=== PATIENT | female | born 1965 | race Caucasian/White ===

== ENCOUNTER 2017-10-09 12:44 | Emergency (ER) | payer MEDICAID, OTHER ==
[~2017-10-09] VITALS: Ht 152.4 cm; Wt 85.0 kg
[~2017-10-09 12:44] MED LIST: ATOR20TA65 PO; GLIP10TA10 PO; LISI-604 PO; METF10002 PO
[2017-10-09 14:28] LABS: BASOPHILS % 0.4 % (0.0-2.0); EOSINOPHILS % 1.2 % (0.0-5.0); HEMATOCRIT. 37.2 % (36.0-48.0); HEMOGLOBIN. 12.8 g/dL (12.0-16.0); LYMPHOCYTES % 35.1 % (20.0-50.0); MEAN CORPUSCULAR HEMOGLOBIN 30.6 pg (28.0-32.0); MEAN CORPUSCULAR VOLUME 88.7 fL (81.0-99.0); MEAN PLATELET VOLUME 9.1 fl (7.4-10.4); NEUTROPHILS % 54.3 % (40.0-76.0); PLATELET 234 x1000/uL (130-400)
[2017-10-09 14:30] LABS: CHLORIDE 105 mEq/L (98-107)
[2017-10-09 14:33] LABS: PROTHROMBIN TIME 10.1 sec (9.4-11.6)
[2017-10-09 14:57] LABS: CLARITY URINE CLEAR (CLEAR); COLOR URINE YELLOW (YELLOW); KETONES URINE NEGATIVE (NEGATIVE); LEUKOCYTE ESTERASE URINE 1+ (NEGATIVE); NITRITE URINE NEGATIVE (NEGATIVE); OCCULT BLOOD URINE NEGATIVE (NEGATIVE); PROTEIN URINE NEGATIVE (NEGATIVE); SPECIFIC GRAVITY URINE 1.019 (1.005-1.030); UROBILINOGEN URINE 0.2 E.U./dL (0.2-1.0)
[2017-10-09] MEDS ORDERED: NAPROXEN 375MG TABLET PO ONE (15:15)
[2017-10-09 17:15] VITALS: BP 145/76
== END 2017-10-09 17:17 | disposition home or self-care (01) ==
LOC: ER 13:36
DX: S33.8XXA Sprain of other parts of lumbar spine and pelvis, initial encounter (principal); B37.3 Candidiasis of vulva and vagina; I10 Essential (primary) hypertension; E11.9 Type 2 diabetes mellitus without complications; Z79.84 Long term (current) use of oral hypoglycemic drugs; X58.XXXA Exposure to other specified factors, initial encounter; Y93.89 Activity, other specified; Y92.89 Other specified places as the place of occurrence of the external cause; Y99.8 Other external cause status
CPT/HCPCS: 36415; 80053; 81003; 83690; 85025; 85610; 99284; Z7610

== ENCOUNTER 2018-09-06 21:21 | Emergency (ER) | payer MEDICAID, OTHER ==
[~2018-09-06] VITALS: Ht 157.5 cm; Wt 82.0 kg
[~2018-09-06 21:21] MED LIST changes: +METF-416 PO; -METF10002 PO
[2018-09-07] MEDS ORDERED: ACETAMINOPHEN 500MG TABLET PO ONE (00:30)
[2018-09-07 00:49] VITALS: BP 155/92
== END 2018-09-07 00:53 | disposition home or self-care (01) ==
LOC: ER 21:21
DX: J06.9 Acute upper respiratory infection, unspecified (principal); E11.9 Type 2 diabetes mellitus without complications; I10 Essential (primary) hypertension
CPT/HCPCS: 99283

== ENCOUNTER 2020-12-18 07:25 | Emergency (ER) | payer OTHER ==
[~2020-12-18] VITALS: Ht 154.9 cm; Wt 82.0 kg
[~2020-12-18 07:25] MED LIST changes: -LISI-604 PO; +LISI20TA31 PO
[2020-12-18 07:29] VITALS: BP 168/84
[2020-12-18] MEDS ORDERED: KETOROLAC 60MG/2ML VIAL IM ONE (09:00)
[2020-12-18] MEDS ORDERED: AMOXICILLIN/POTASSIUM CLAVULANATE 875/125MG TAB PO ONE (09:00)
[2020-12-18] MEDS ORDERED: AMOX-424 MT (10:20)
[2020-12-18] MEDS ORDERED: IBUP-2029 MT (10:20)
== END 2020-12-18 10:28 | disposition home or self-care (01) ==
LOC: ER 07:25
DX: L03.211 Cellulitis of face (principal); K02.9 Dental caries, unspecified; E11.9 Type 2 diabetes mellitus without complications; E78.00 Pure hypercholesterolemia, unspecified
CPT/HCPCS: 70486; 96372; 99284; J1885

== ENCOUNTER 2025-05-21 10:43 | Emergency (ER) | payer MEDICAID ==
[~2025-05-21] VITALS: Ht 152.4 cm; Wt 80.0 kg
[~2025-05-21 10:43] MED LIST changes: +ASPI-1497 MT; -ATOR20TA65 PO; +CIPR-263 MT; -GLIP10TA10 PO; +GLIP10TA17 PO; +IBUP-1455 MT; +INSU100I28 SQ; +LIP40 MT; +METO25TA6 MT
[2025-05-21 11:08] VITALS: O2SAT 99
[2025-05-21 13:26] LABS: CLARITY URINE CLOUDY (CLEAR); COLOR URINE ORANGE (YELLOW); GLUCOSE URINE 3+ (NEGATIVE); KETONES URINE NEGATIVE (NEGATIVE); LEUKOCYTE ESTERASE URINE 1+ (NEGATIVE); NITRITE URINE NEGATIVE (NEGATIVE); OCCULT BLOOD URINE 3+ (NEGATIVE); PH URINE 5.5 (4.5-8.0); PROTEIN URINE 2+ (NEGATIVE); SPECIFIC GRAVITY URINE 1.030 (1.005-1.030); UROBILINOGEN URINE 0.2 E.U./dL (0.2-1.0)
[2025-05-21 13:47] LABS: BACTERIA URINE 1+; RBC URINE TNTC /hpf (0-2); SQUAMOUS EPITHELIAL CELL URINE 1+ /lpf (RARE/1+); YEAST URINE NONE SEEN
[2025-05-21] MEDS ORDERED: PHEN-910 MT (14:07)
[2025-05-21] MEDS ORDERED: CEPH500T MT (14:07)
[2025-05-21 14:23] VITALS: BP 157/99; PULSE 78; RESP 16; TEMP 36.5; O2SAT 99
== END 2025-05-21 14:25 | disposition home or self-care (01) ==
LOC: ER 10:43
DX: N12 Tubulo-interstitial nephritis, not specified as acute or chronic (principal); E11.9 Type 2 diabetes mellitus without complications; E78.00 Pure hypercholesterolemia, unspecified; I10 Essential (primary) hypertension; F10.90 Alcohol use, unspecified, uncomplicated; Z79.4 Long term (current) use of insulin; Z79.82 Long term (current) use of aspirin; Z79.84 Long term (current) use of oral hypoglycemic drugs; Z79.899 Other long term (current) drug therapy
CPT/HCPCS: 81003; 81025; 99283